=== PATIENT | female | born 1945 | race Caucasian/White ===

== ENCOUNTER → 2016-07-07 | Outpatient (CLI) | payer OTHER ==
[~2016-07-07] MED LIST: ALLER-TEC D 5-1 EACH PO; ALLERGY10 M1 PO; CENTRUM SILVER1 EAC5 PO; COCONUT OIL100 GM PO; DYAZIDE 37.5-21 EACH PO; FISH OIL 1,0001 EAC5 PO; IBUPROFEN 200200 M1 PO; IBUPROFEN 600600 M1 PO; MAGNESIUM OXID400 MG PO; MUCINEX1200 MG PO; MUCINEX600 MG PO; MULTIVITAMINS PO; PROBIOTIC1 EAC1 PO; SKELAXIN 800 M800 M1 PO; SLOW-MAG64 MG PO; TOPROL XL50 MG PO; TRIAMTERENE-HC1 EAC1 PO
== END ==
LOC: MRI 08:30
DX: S76.911A Strain of unspecified muscles, fascia and tendons at thigh level, right thigh, initial encounter (principal); M25.551 Pain in right hip

== ENCOUNTER → 2016-08-03 | Outpatient (CLI) | payer OTHER ==
[~2016-08-03] VITALS: Ht 160 cm; Wt 108.0 kg
--- NOTE | ~2016-08-03 | HPC ---
[facility] [address] [place] [address] PAIN MANAGEMENT CONSULTATION Name: ERIK HERNANDEZ Room #: REG [facility].#: [id number] Admission: 08/03/16 Attend Phys: Rizwan Decker DO Discharge: Date of : 43 Report #: [id number] THIS REPORT FOR: //name// CC: Rizwan Alford DATE OF SERVICE: 08/03/2016 REFERRING PHYSICIAN: Jonah Alford MD CHIEF COMPLAINT: Low back pain, left lower extremity pain and paresthesias. HISTORY OF PRESENT ILLNESS: As you know, the patient is a 71-year-old female who returns today in followup visit reporting pain score of 4-5/10, states pain begins in low back, radiates down the left leg all the way to the foot. She describes the pain as chronic in nature, sharp, numbness, tingling in sensation, exacerbated with walking, standing, improves with medications and sitting and repositioning. She reports good efficacy with previous set of epidural injections up to 100% improvement in overall pain with the last injection lasting until just about a month ago. She has had a slow and progressive return of symptoms, has returned requesting next in a series of epidural injections. She denies new injury, new trauma and has no changes in her medical history since our last visit. ALLERGIES: ASPIRIN. CURRENT MEDICATIONS: Metaxalone 800 mg 4 times a day, lactobacillus 1 tab per day, cetirizine 10 mg per day, guaifenesin 1200 mg once a day, coconut oil 1000 grams per day, magnesium oxide 400 mg per day, multivitamin 1 tab per day, ibuprofen 200 mg 3 times a day, omega-3 fish oil 1 tab per day, metoprolol 50 mg once a day. SOCIAL HISTORY: The patient denies tobacco, IV or illicit drug use. She admits to 4 alcoholic beverages per week. She is working, not receiving workmen's compensation. She is unaccompanied at today's visit. IMAGING: No new imaging is available. PHYSICAL EXAMINATION: VITAL SIGNS: Blood pressure 153/80, pulse 64, respiratory rate 18, unlabored. The patient is 95% on room air, height 5 feet 3 inches tall, weight 238.2 pounds, BMI calculated 42.2. GENERAL: Well developed, well nourished, well-hydrated exogenously obese 71-year-old female appearing stated age, placing current pain score at around 4-5/10. HEENT: Normocephalic, atraumatic. Pupils equal, round, [place] [address] PAIN MANAGEMENT CONSULTATION Name: ERIK HERNANDEZ Room #: REG [facility].#: [id number] Admission: 08/03/16 Attend Phys: Rizwan Decker DO Discharge: Date of : 43 Report #: [id number] Extraocular muscles are intact. Speech fluent. EXTREMITIES: Show no clubbing, no cyanosis, no edema. MUSCULOSKELETAL: Lower extremity strength equal and symmetrical 5/5, intact to light touch from L1 through S2 dermatomes. Seated straight leg raising negative. Supine straight leg raising positive on the left. FABERs test negative. Modified Gaenslen's positive for axial low back pain. ASSESSMENT: 1. Symptomatic lumbar radiculopathy. 2. Lumbosacral spondylosis with radiculopathy. 3. Chronic intractable pain. PLAN: 1. The patient has returned today in followup visit requesting to undergo next in the series of epidural injections under fluoroscopic guidance. She had done very well with previous set of epidural injections with near 100% improvement in overall pain lasting until just approximately 1 month ago with slow and progressive return of symptoms. She returns today requesting this epidural injection under fluoroscopic guidance. She has been advised risks and benefits of the procedure, states she understood and wished to proceed. 2. No medication changes were made at today's visit. The patient to continue current medical therapy as previously prescribed. 3. The patient to return to our clinic on an as needed basis for the next in the series of epidural injection and discuss other treatment options for lumbar radicular symptoms. PROCEDURE NOTE DESCRIPTION OF PROCEDURE: Lumbar epidural steroid injection under fluoroscopic guidance. This is the first procedure of the second series that the patient is undergoing. After obtaining written consent, the patient was taken back to the fluoroscopy suite, placed in a prone position with pillow under the abdomen to decrease lumbar lordosis. The skin overlying the lumbosacral area was then prepped and draped in aseptic fashion. The L5-S1 vertebral interspace was then identified by AP fluoroscopy. The skin and subcutaneous tissue overlying the target site of injection was anesthetized with 3 mL 1% lidocaine. A 20-gauge 4-1/2 inch Tuohy needle was then advanced under fluoroscopic guidance towards the epidural space using a paramedian approach. The epidural space was identified using loss of resistance to air technique. After negative aspiration for heme or cerebrospinal fluid, a total of 1 mL of Omnipaque was injected. A lumbar epidurogram was confirmed using both AP and lateral fluoroscopy. After negative aspiration for heme or cerebrospinal fluid, 5 mL of a solution [address] [address] PAIN MANAGEMENT CONSULTATION Name: ERIK HERNANDEZ Room #: REG [facility]#: [id number] Admission: 08/03/16 Attend Phys: Rizwan Decker DO Discharge: Date of : 43 Report #: [id number] containing 2 mL 40 mg per mL, 80 mg total triamcinolone, 3 mL lidocaine 1% was injected in increments. Contrast spread was noted in posterior epidural space. The needle was then retracted approximately half way and needle tract flushed with 1 mL of 1% lidocaine. Needle was then removed. There were no apparent sensory or motor deficits in the lower extremity following the procedure. A sterile bandage was placed over the injection site. The heart rate, pulse, oximetry and blood pressure were continuously monitored after the procedure. There were no apparent complications. The patient tolerated the procedure well and was carefully escorted to the recovery room in stable condition. There were no apparent complications. After meeting discharge criteria, the patient was then discharged home. By: [id number] Rizwan Decker DO /nt
[2016-08-03 09:33] VITALS: BP 153/80
== END ==
LOC: PAIN 06:44
DX: M47.27 Other spondylosis with radiculopathy, lumbosacral region (principal); M54.16 Radiculopathy, lumbar region; G89.29 Other chronic pain

== ENCOUNTER → 2016-11-09 | Outpatient (CLI) | payer OTHER ==
[~2016-11-09] VITALS: Ht 160 cm; Wt 105.7 kg
--- NOTE | ~2016-11-09 | HPC ---
[facility] [place] [address] PAIN MANAGEMENT CONSULTATION Name: ERIK HERNANDEZ Room #: REG [facility] [place]#: [id number] Admission: 11/09/16 Attend Phys: Rizwan Decker DO Discharge: Date of : 43 Report #: [id number] THIS REPORT FOR: //name// CC: Rizwan Alford DATE OF SERVICE: 11/09/2016 DATE OF SERVICE: 11/09/2016 REFERRING PHYSICIAN: Jonah Alford M.D. CHIEF COMPLAINT: Low back pain, left lower extremity pain and paresthesias. HISTORY OF PRESENT ILLNESS: As you know, the patient is a very pleasant 71-year-old female, who returns today in followup visit with recurrent low back pain, left lower extremity pain with paresthesias. The patient places current pain score 6/10. She indicates pain at a level that is exacerbated with walking and standing, improves with medications and seated position. She indicates today previous epidural injection provided 100% improvement in overall pain for nearly 3 months. Unfortunately, the patient has had a slow and progressive return of symptoms. She returns today in followup visit requesting next in a series of epidural injections in hopes of improving pain. She indicates no new injury, no new trauma or changes in her medical history since our last visit. ALLERGIES: ASPIRIN. CURRENT MEDICATIONS: Metoprolol, omega-3 fish oil, ibuprofen, multivitamin, magnesium, guaifenesin, cetirizine, lactobacillus and Skelaxin. SOCIAL HISTORY: The patient denies tobacco, IV or illicit drug use. Admits to approximately 4 alcoholic beverages per week. She is currently unemployed, but is looking for a new job. She is unaccompanied at today's visit. IMAGING: No new imaging available. PHYSICAL EXAMINATION: VITAL SIGNS: Blood pressure 154/72, pulse 90, respiratory rate 18, unlabored. The patient is 95% on room air, height 5 feet 3 inches tall, weight 233 pounds, BMI calculated 41.3. GENERAL: Well developed, well nourished, well-hydrated exogenously obese 71-year-old female appearing stated age, placing current pain score 6/10. HEENT: Normocephalic, atraumatic. Pupils equal, round, reactive to light. Extraocular muscles are intact. EXTREMITIES: Show no clubbing, no cyanosis, no edema. MUSCULOSKELETAL: Lower extremity strength equal and symmetrical 5/5, muscle [facility] [address] [place] [address] PAIN MANAGEMENT CONSULTATION Name: ERIK HERNANDEZ [id number] Admission: 11/09/16 Attend Phys: Rizwan Decker DO Discharge: Date of : 43 Report #: [id number] bulk and tone equal and symmetrical. Seated straight leg raising mildly positive, supine straight leg raising positive on the right. On the left, Humberto test is negative. Modified Gaenslen's positive for axial low back pain. Symptoms do appear to radiate on the L5 distribution. ASSESSMENT: 1. Symptomatic lumbar radiculopathy. 2. Lumbosacral spondylosis with radiculopathy. 3. Chronic intractable pain. PLAN: 1. The patient returns today in followup visit noting 100% improvement in overall pain lasting for nearly 3 months with previous epidural injection. The patient has requested a repeat epidural injection performed today to address her 6/10 pain involving low back and lower extremity. The patient has been advised of the risks and benefits of this procedure. These risks include but are not necessarily limited to bleeding, bruising, infection, worsening pain, no relief of pain, also risk of temporary or permanent muscle weakness, temporary or permanent nerve damage, possible paralysis and . The patient states understood and wished to proceed. 2. No medication changes were made at today's visit, the patient to continue current medical therapy as previously prescribed. 3. The patient to return to our clinic on an as needed basis for the next in the series of epidural injections. PROCEDURE NOTE DESCRIPTION OF PROCEDURE: L5-S1 left paramedian epidural steroid injection under fluoroscopic guidance. This is the second procedure of the second series that the patient is undergoing. After obtaining written consent, the patient was taken back to the fluoroscopy suite, placed in a prone position with pillow under the abdomen to decrease lumbar lordosis. The skin overlying the lumbosacral area was then prepped and draped in aseptic fashion. The L5-S1 vertebral interspace was then identified by AP fluoroscopy. The skin and subcutaneous tissue overlying the target site of injection was anesthetized with 3 mL 1% lidocaine. A 20-gauge 4-1/2 inches Tuohy needle was then advanced under fluoroscopic guidance towards the epidural space using a left paramedian approach. The epidural space was identified using loss of resistance to air technique. After negative aspiration for heme or cerebrospinal fluid, a total of 1 mL of Omnipaque was injected. A lumbar epidurogram was confirmed using both AP and lateral fluoroscopy. After negative aspiration for heme or cerebrospinal [address] [address] PAIN MANAGEMENT CONSULTATION Name: ERIK HERNANDEZ Room #: REG [facility]#: [id number] Admission: 11/09/16 Attend Phys: Rizwan Decker DO Discharge: Date of : 43 Report #: [id number] fluid, 5 mL of solution containing 2 mL 40 mg per mL, 80 mg total triamcinolone, 3 mL of lidocaine 1% was injected in increments. Contrast spread was noted posterior epidural space. The needle was then retracted approximately half way and needle tract flushed with 1 mL of 1% lidocaine. Needle was then removed. There were no apparent sensory or motor deficits in the lower extremity following the procedure. A sterile bandage was placed over the injection site. The heart rate, pulse, oximetry and blood pressure were continuously monitored after the procedure. There were no apparent complications. The patient tolerated the procedure well and was carefully escorted to the recovery room in stable condition. There were no apparent complications. After meeting discharge criteria, the patient was then discharged home. <ELECTRONICALLY SIGNED> By: Rizwan Decker DO 11/15/16 [id number] Rizwan Decker DO /nt
[2016-11-09 08:48] VITALS: BP 154/72
== END ==
LOC: PAIN 07:14
DX: M47.27 Other spondylosis with radiculopathy, lumbosacral region (principal); G89.29 Other chronic pain; R20.8 Other disturbances of skin sensation; Z88.8 Allergy status to other drugs, medicaments and biological substances; Z79.899 Other long term (current) drug therapy; M54.16 Radiculopathy, lumbar region

== ENCOUNTER → 2017-02-08 | Outpatient (CLI) | payer OTHER ==
[~2017-02-08] VITALS: Ht 160 cm; Wt 110.2 kg
--- NOTE | ~2017-02-08 | HPC ---
[facility] [address] [place] [address] PAIN MANAGEMENT CONSULTATION Name: ERIK HERNANDEZ [id number] Admission: 02/08/17 Attend Phys: Rizwan Decker DO Discharge: Date of : 43 Report #: [id number] THIS REPORT FOR: //name// CC: Rizwan Alford MD DATE OF SERVICE: 02/08/2017 CHIEF COMPLAINT: Low back pain, left lower extremity pain and paresthesias. HISTORY OF PRESENT ILLNESS: As you know, the patient is a very pleasant 71-year-old female returning in followup visit reporting pain score of around 5-6/10. States her pain is chronic in nature, involving low back, both buttocks, posterolateral thigh all the way down the legs. She states her pain as numbness, tingling, weakness and aching in sensation; exacerbated with walking, standing; improves with medications, sitting and epidural injections. The patient reports greater than 50% improvement in overall pain with previous epidural injection and unfortunately, the patient has had a slow and progressive return of symptoms without inciting injury or trauma. She has returned requesting next in a series of epidural injections in hopes of building on success of previous intervention. ALLERGIES: ASPIRIN. CURRENT MEDICATIONS: Skelaxin, Lactobacillus, Aller-Jose, guaifenesin, magnesium, multivitamin, ibuprofen, omega-3, metoprolol. SOCIAL HISTORY: The patient denies tobacco, IV or illicit drug use. Admits to 4 alcohol beverages per week. She is working, not receiving workmen's compensation, unaccompanied today. IMAGING: No imaging available. PHYSICAL EXAMINATION: VITAL SIGNS: Blood pressure 181/83, pulse is 73, respiratory rate 16, unlabored. The patient at 92% on room air. Height 5 feet 3 inches tall, weight 243 pounds, BMI calculated 43.1. GENERAL: Well-developed, well-nourished, well-hydrated, class 3 morbidly obese 71-year-old female appearing her stated age. Pain is rated at around 6/10. HEENT: Normocephalic, atraumatic. Pupils equal, round, reactive to light. Extraocular muscles are intact. EXTREMITIES: Show no clubbing, no cyanosis, no edema. MUSCULOSKELETAL: Seated straight leg raising negative. Supine straight leg raising positive on the left. NEHEMIAS test negative. Modified Gaenslen's positive for axial low back pain. Gait appears normal. Stance is slightly [facility] [address] [place] [address] PAIN MANAGEMENT CONSULTATION Name: ERIK HERNANDEZ Room #: REG [facility]#: [id number] Admission: 02/08/17 Attend Phys: Rizwan Decker DO Discharge: Date of : 43 Report #: [id number] forward flexed lumbar spine. Muscle bulk, tone equal and symmetrical in lower extremities. ASSESSMENT: 1. Symptomatic lumbar radiculopathy. 2. Lumbosacral spondylosis with radiculopathy. 3. Chronic intractable pain. PLAN: 1. The patient returns today in followup visit requesting to undergo the next in a series of epidural injections. We have taken the liberty of contacting the patient's third alliance party payer and we have been able to establish preauthorization for the patient to undergo the procedure today. The patient has been advised of the risks and benefits of this procedure. These risks include but are not necessarily limited to bleeding, bruising, infection, worsening pain, no relief of pain, also risk of temporary or permanent muscle weakness, temporary or permanent nerve damage, possible paralysis and . The patient states understood and wished to proceed. 2. No medication changes were made at today's visit. The patient to continue current medical therapy as previously prescribed. 3. The patient to return to our clinic on an as-needed basis for the next in a series of epidural injection and to discuss other treatment options. DESCRIPTION OF PROCEDURE: L5-S1 paramedian epidural steroid injection under fluoroscopic guidance. This is the second procedure of the second series that the patient is undergoing. After obtaining written consent, the patient was taken back to the fluoroscopy suite, placed in a prone position with pillow under the abdomen to decrease lumbar lordosis. The skin overlying the lumbosacral area was then prepped and draped in aseptic fashion. The lumbar or lumber vertebral interspace was then identified by AP fluoroscopy. The skin and subcutaneous tissue overlying the target site of injection was anesthetized with 3 mL 1% lidocaine. A 20-gauge 4-1/2 inch Tuohy needle was then advanced under fluoroscopic guidance towards the epidural space using a paramedian approach. The epidural space was identified using loss of resistance to air technique. After negative aspiration for heme or cerebrospinal fluid, a total of 1 mL of Omnipaque was injected. A lumbar epidurogram was confirmed using both AP and lateral fluoroscopy. After negative aspiration for heme or cerebrospinal fluid, 5 mL of a solution containing 2 mL 40 mg per mL, 80 mg total triamcinolone, 3 mL lidocaine 1% was injected in increments. Contrast spread was noted posterior epidural space. The needle was then retracted approximately half way and needle tract flushed with 1 mL of 1% lidocaine. Needle was then removed. There were no apparent [address] [address] PAIN MANAGEMENT CONSULTATION Name: ERIK HERNANDEZ Room #: REG [facility]#: [id number] Admission: 02/08/17 Attend Phys: Rizwan Decker DO Discharge: Date of : 43 Report #: [id number] sensory or motor deficits in the lower extremity following the procedure. A sterile bandage was placed over the injection site. The heart rate, pulse, oximetry and blood pressure were continuously monitored after the procedure. There were no apparent complications. The patient tolerated the procedure well and was carefully escorted to the recovery room in stable condition. There were no apparent complications. After meeting discharge criteria, the patient was then discharged home. By: [id number] Rizwan Decker DO /nt
[2017-02-08 08:12] VITALS: BP 181/83
== END | disposition home or self-care (01) ==
LOC: PAIN 07:07
DX: M54.16 Radiculopathy, lumbar region (principal); M47.27 Other spondylosis with radiculopathy, lumbosacral region; G89.29 Other chronic pain; Z68.41 Body mass index [BMI] 40.0-44.9, adult; Z88.6 Allergy status to analgesic agent; Z79.899 Other long term (current) drug therapy; E66.01 Morbid (severe) obesity due to excess calories

== ENCOUNTER → 2017-03-15 | Outpatient (CLI) | payer OTHER | LOC: RAD 01:29 | DX: Z12.31 Encounter for screening mammogram for malignant neoplasm of breast (principal) ==

== ENCOUNTER → 2017-06-01 | Outpatient (CLI) | payer OTHER ==
[~2017-06-01] VITALS: Ht 160 cm; Wt 111.5 kg
--- NOTE | ~2017-06-01 | HPC ---
[facility] [place] [address] PAIN MANAGEMENT CONSULTATION Name: ERIK HERNANDEZ [facility] #: [facility] [id number] Admission: 06/01/17 Attend Phys: Rizwan Decker DO Discharge: Date of : 43 Report #: [id number] THIS REPORT FOR: //name// CC: Rizwan Alford MD DATE OF SERVICE: 06/01/2017 REFERRING PHYSICIAN: Jonah Alford MD CHIEF COMPLAINT: Low back pain, bilateral lower extremity pain and paresthesias. HISTORY OF PRESENT ILLNESS: As you know, the patient is a very pleasant 72-year-old female returning in followup visit with recurrent low back pain, bilateral lower extremity pain. She is now placing pain score at 8/10. She states pain is chronic in nature involving low back and bilateral legs, she describes the pain as numbness, tingling, weakness, aching, exacerbated with walking and standing, improves with medications and sitting position as well as epidural injections, most recent epidural injection provided 75% improvement in overall pain until just recently where she had a slow and progressive return of symptoms, no inciting injury or trauma. She returns today in followup visit requesting to undergo next in the series of epidural injections. ALLERGIES: Aspirin. CURRENT MEDICATIONS: Skelaxin, lactobacillus, cetirizine, guaifenesin, magnesium oxide, multivitamin, ibuprofen, omega-3 fish oil, and metoprolol. SOCIAL HISTORY: The patient denies tobacco, IV or illicit drug use, admits to approximately 4 alcoholic beverages per week. She is working, not receiving workmen's compensation, unaccompanied today. IMAGING: No new imaging available. PQRS: The patient denies osteoarthritis or rheumatoid arthritis. She has a pain intensity of 8/10. She is not a fall risk, has not had a fall in the past 3 months. She does use a cane for ambulation. She is not on blood thinner. She is treated for hypertension. She is not on opioids for any length of time. She has a low risk assessment for opioid abuse. Her functional assessment score 49/70. PHYSICAL EXAMINATION: VITAL SIGNS: Blood pressure 136/54, pulse 73, respiratory rate [address] [facility] [place] [address] [place] [address] PAIN MANAGEMENT CONSULTATION Name: ERIK HERNANDEZ JUSTYNA Room #: [facility].#: [id number] Admission: 06/01/17 Attend Phys: Rizwan Decker DO Discharge: Date of : 43 Report #: [id number] unlabored, the patient is 95% on room air, height 5 feet 3 inches tall, weight 245.8 pounds, and BMI calculated 43.6. GENERAL: Well-developed, well-nourished, well-hydrated, morbidly obese 72-year-old female, appearing her stated age, placing pain score today 8/10. HEENT: Normocephalic, atraumatic. Pupils are equal, round, and reactive to light. Extraocular muscles are intact. Speech is fluent. EXTREMITIES: Show no clubbing, no cyanosis, and no edema. MUSCULOSKELETAL: The patient has normal lower extremity strength 5/5, intact to light touch from L1 through S2 dermatomes. Seated straight leg raising negative. Supine straight leg raising positive. Humberto's test negative. ASSESSMENT: 1. Symptomatic lumbar radiculopathy. 2. Lumbosacral spondylosis with radiculopathy. 3. Chronic intractable pain. PLAN: 1. The patient returns today in followup visit having noted 75% improvement in overall pain with epidural injection provided at last visit. The patient is extremely pleased with response to this epidural injection, returning today in followup visit requesting to undergo the next in the series. The patient was advised the risks and benefits of the procedure and wished to proceed. 2. No medication changes were made at today's visit, the patient to continue current medical therapy as previously prescribed. 3. The patient to return to our clinic on an as needed basis for possible next in the series of epidural injections. PROCEDURE NOTE DESCRIPTION OF PROCEDURE: L5-S1 interlaminar epidural steroid injection under fluoroscopic guidance. This is the first procedure of the third series that the patient is undergoing. After obtaining written consent, the patient was taken back to the fluoroscopy suite, placed in a prone position with pillow under the abdomen to decrease lumbar lordosis. The skin overlying the lumbosacral area was then prepped and draped in aseptic fashion. The L5-S1 vertebral interspace was then identified by AP fluoroscopy. The skin and subcutaneous tissue overlying the target site of injection was anesthetized with 3 mL 1% lidocaine. A 20-gauge 4-1/2-inch Tuohy needle was then advanced under fluoroscopic guidance towards the epidural space using a paramedian approach. The epidural space was identified using loss of resistance to air technique. After negative aspiration for heme or cerebrospinal fluid, a total of 1 mL of Omnipaque was injected. A lumbar epidurogram was confirmed using both AP and lateral fluoroscopy. After [address] [address] PAIN MANAGEMENT CONSULTATION Name: ERIK HERNANDEZ Room #: REG LUBNA Anthony#: [id number] Admission: 06/01/17 Attend Phys: Rizwan Decker DO Discharge: Date of : 43 Report #: [id number] negative aspiration for heme or cerebrospinal fluid, 5 mL of a solution containing 2 mL 40 mg per mL, 80 mg total triamcinolone, 3 mL lidocaine 1% was injected in increments. Contrast spread was noted posterior epidural space. The needle was then retracted approximately half way and needle tract flushed with 1 mL of 1% lidocaine. Needle was then removed. There were no apparent sensory or motor deficits in the lower extremity following the procedure. A sterile bandage was placed over the injection site. The heart rate, pulse, oximetry and blood pressure were continuously monitored after the procedure. There were no apparent complications. The patient tolerated the procedure well and was carefully escorted to the recovery room in stable condition. There were no apparent complications. After meeting discharge criteria, the patient was then discharged home. <ELECTRONICALLY SIGNED> By: Rizwan Decker DO 06/14/17 0858 [id number] Rizwan Decker DO /nt
[2017-06-01 08:45] VITALS: BP 136/54
== END | disposition home or self-care (01) ==
LOC: PAIN 07:00
DX: M47.27 Other spondylosis with radiculopathy, lumbosacral region (principal); G89.29 Other chronic pain; I10 Essential (primary) hypertension; Z88.8 Allergy status to other drugs, medicaments and biological substances; Z79.899 Other long term (current) drug therapy; Z98.890 Other specified postprocedural states

== ENCOUNTER → 2017-10-11 | Outpatient (CLI) | payer OTHER ==
[~2017-10-11] VITALS: Ht 160 cm; Wt 110.2 kg
--- NOTE | ~2017-10-11 | HPC ---
[facility] [place] [address] PAIN MANAGEMENT CONSULTATION Name: ERIK HERNANDEZ Room #: REG [facility]..#: [id number] Admission: 10/11/17 Attend Phys: Rizwan Decker DO Discharge: Date of : 43 Report #: [id number] THIS REPORT FOR: //name// CC: Rizwan Alford MD DATE OF SERVICE: 10/11/2017 CHIEF COMPLAINT: Low back pain, left lower extremity pain with paresthesias. HISTORY OF PRESENT ILLNESS: As you know, the patient is a pleasant 71-year-old female who returns today in followup visit reporting pain score around 7-9/10. States her pain is numbness, tingling, weakness, aching and swelling in sensation, exacerbated with walking, standing, sleeping, and improves with medications, sitting, repositioning and previous epidural injection. The patient reports improvement of symptoms of greater than 90%, lasting for greater than 3 months with the previous epidural injection. She returns today in followup visit requesting to undergo next in the series of epidural injections to build on success of previous intervention. ALLERGIES: ASPIRIN. CURRENT MEDICATIONS: Metoprolol, omega 3 fish oil, ibuprofen, multivitamin, magnesium, guaifenesin, cetirizine, metaxalone, lactobacillus. SOCIAL HISTORY: The patient denies tobacco, IV or illicit drug use. Admits to 4 alcohol beverages per week. She is working, not receiving workmen's compensation, unaccompanied today. IMAGING: No new imaging available. PHYSICAL EXAMINATION: VITAL SIGNS: Blood pressure 194/90, pulse is 90, respiratory rate 16, unlabored. The patient is 94% on room air. Height 5 feet 3 inch tall, weight 243 pounds, BMI calculated 43.1. GENERAL: Well-developed, well-nourished, well-hydrated, class 3, morbidly obese 72-year-old female appearing stated age, placing current pain score 7-9/10. HEENT: Normocephalic, atraumatic. Pupils equal, round, reactive to light. Extraocular muscles are intact. EXTREMITIES: Show no clubbing, no cyanosis, no edema. MUSCULOSKELETAL: Seated straight leg raising negative. Supine straight leg raising positive on the left. Humberto's test negative. Modified Gaenslen's is positive for axial low back pain. Gait appears normal. ASSESSMENT: [address] [address] PAIN MANAGEMENT CONSULTATION Name: ERIK HERNANDEZ [facility] [id number] Admission: 10/11/17 Attend Phys: Rizwan Decker DO Discharge: Date of : 43 Report #: [id number] 1. Symptomatic lumbar radiculopathy. 2. Lumbosacral spondylosis with radiculopathy. 3. Morbid obesity. 4. Chronic intractable pain. PLAN: 1. The patient returns today in followup visit requesting to undergo next in the series of epidural injections. She reports 90% improvement in overall pain with previous epidural injection lasting for nearly 3 months. She returns today requesting next in the series. I have advised the patient of the risks and benefits, states understood and wished to proceed. 2. No medication changes made at today's visit. The patient to continue current medical therapy as previously prescribed. 3. We will see the patient back in followup visit on an as needed basis for possible next in a series of epidural injections. By: 1445 [id number] Rizwan Decker DO /nt
--- NOTE | ~2017-10-11 | P ---
[facility] [place] [address] PROCEDURE REPORT Name: ERIK HERNANDEZ [facility] [id number] Admission: 10/11/17 Attend Phys: Rizwan Decker DO Discharge: Date of : 43 Report #: [id number] THIS REPORT FOR: //name// CC: Rizwan Alford MD DATE OF SERVICE: 10/11/2017 DESCRIPTION OF PROCEDURE: L5-S1 paramedian epidural steroid injection under fluoroscopic guidance. This is the third procedure of the second series that the patient is undergoing. After obtaining written consent, the patient was taken back to the fluoroscopy suite, placed in a prone position with pillow under the abdomen to decrease lumbar lordosis. The skin overlying the lumbosacral area was then prepped and draped in aseptic fashion. The L5-S1 vertebral interspace was then identified by AP fluoroscopy. The skin and subcutaneous tissue overlying the target site of injection was anesthetized with 3 mL 1% lidocaine. A 20-gauge 3-1/2-inch Tuohy needle was then advanced under fluoroscopic guidance towards the epidural space using a right paramedian approach. The epidural space was identified using loss of resistance to air technique. After negative aspiration for heme or cerebrospinal fluid, a total of 1 mL of Omnipaque was injected. A lumbar epidurogram was confirmed using both AP and lateral fluoroscopy. After negative aspiration for heme or cerebrospinal fluid, 5 mL of a solution containing 2 mL 40 mg per mL 80 mg total triamcinolone, 3 mL lidocaine 1% was injected in increments. Contrast spread was noted posterior epidural space. The needle was then retracted approximately half way and needle tract flushed with 1 mL of 1% lidocaine. Needle was then removed. There were no apparent sensory or motor deficits in the lower extremity following the procedure. A sterile bandage was placed over the injection site. The heart rate, pulse, oximetry and blood pressure were continuously monitored after the procedure. There were no apparent complications. The patient tolerated the procedure well and was carefully escorted to the recovery room in stable condition. There were no apparent complications. After meeting discharge criteria, the patient was then discharged home. By: 1445 [id number] Rizwan Decker DO /nt
[2017-10-11 13:19] VITALS: BP 194/90
== END | disposition home or self-care (01) ==
LOC: PAIN 12:40
DX: M47.27 Other spondylosis with radiculopathy, lumbosacral region (principal); E66.01 Morbid (severe) obesity due to excess calories; G89.29 Other chronic pain; Z68.41 Body mass index [BMI] 40.0-44.9, adult; Z79.899 Other long term (current) drug therapy; Z88.8 Allergy status to other drugs, medicaments and biological substances; Z98.890 Other specified postprocedural states

== ENCOUNTER → 2018-03-16 | Outpatient (CLI) | payer OTHER | LOC: RAD 03:05 | DX: Z12.31 Encounter for screening mammogram for malignant neoplasm of breast (principal) ==

== ENCOUNTER → 2019-03-19 | Outpatient (CLI) | payer OTHER | LOC: BC 03-15 21:32 | DX: Z12.31 Encounter for screening mammogram for malignant neoplasm of breast (principal) ==

== ENCOUNTER → 2019-04-05 | Outpatient (CLI) | payer OTHER | LOC: RAD 08:03 | DX: N63.11 Unspecified lump in the right breast, upper outer quadrant (principal) ==

== ENCOUNTER → 2019-04-06 | Outpatient (CLI) | payer OTHER ==
--- NOTE | 2019-04-12 11:08 | PATH ---
[facility] [address] [place] [address] PATHOLOGY RPT PROCEDURE Name: MARYERIK JANSEN Room #: REG LUBNA Anthony.#: [id number] Admission: 04/06/19 Date of : 43 Discharge: Report #: [id number] Path Case #: [id number] [facility] Accession Number: [id number] . 01 Material submitted: . breast - RIGHT BREAST MASS, 10:00, 8CMFN. Modifiers: right, 10:00 . 01 Clinical history: . Right breast mass . 02 Diagnosis: Breast, right breast mass 10:00 8 cm from nipple, needle core biopsy: - INVASIVE LOBULAR CARCINOMA, ASHLEY GRADE 1 AND MEASURING 1.4 CM IN GREATEST DIMENSION IN CONTIGUOUS LENGTH IN A SINGLE CORE. 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 LBQ 04/10/2019 1047 Local . 02 Comment: Specimen type: Needle core biopsy Tumor site: Right breast 10:00 8 cm from nipple Tumor quantitation: 1.4 cm in greatest dimension in contiguous length in a single core Histologic type: Invasive lobular carcinoma Histologic grade: Ashley grade 1 Tubules, nuclei and mitoses: 3, 1 and 1 respectively LVSI: Not identified Microcalcifications: Present in proliferative fibrocystic changes, as well as amidst invasive carcinoma Markers: ER, WY, HER-2/dianna and Ki-67 Block: A2 . A properly controlled E-cadherin immunohistochemical stain is performed on block A1 and it shows no reactivity within the invasive carcinoma, consistent with the diagnosis rendered. . Co-review: Dr. Gentry Bernstein . Findings of this case are telephoned to Dr. Caban on behalf of Dr. Renzo Hoover at approximately 1:05 p.m. on 04/09/19. (IUV/db; 04/09/2019) . 02 Addendum: . Special studies report received from [facility], [address] [place] [address], [address], [place], [address], on case [id number], labeled with their number [id number], dated 04/11/2019. [place] [address] PATHOLOGY RPT PROCEDURE Name: MARYPONCHOERIKSAIRA JANSEN Room #: REG LUBNA Drake#: [id number] Admission: 04/06/19 Date of : 43 Discharge: Report #: [id number] Path Case #: [id number] . Breast/Prognostic Marker Analysis . Specimen Site: Breast - Breast Cancer Specimen ID #: [id number] . ER (Estrogen Receptor) Present/Positive Percent: 96.20% Analysis: Image Comments: Staining Intensity: Moderate. . WY (Progesterone Receptor) Present/Positive Percent: 74.61% Analysis: Image Comments: Staining Intensity: Weak to Moderate. . HER2 Not Over-Expressed Score: 0 Analysis: Image . Ki-67 Low Proliferation Percent: 6.78% Analysis: Image . Time to Fixation (Cold Ischemic Time): Not Provided Duration of Fixation: 13 hrs. 20 min Type of Fixative: 10% Neutral Buffered Formalin . at [facility]. Bridger Joseph MD Pathologist . Methodology The HER2 Receptor protein expression is analyzed using the Rosepine HER2 rabbit monoclonal antibody (clone [id number]). This assay is used for diagnostic determination of the HER2 protein over-expression in paraffin embedded, formalin fixed breast cancer tissue on the Rosepine Benchmark. The specimen is processed using a secondary antibody-HRP conjugate detection system. The membrane staining of the tumor is determined either by manual score or image analysis. This antibody is intended for in vitro diagnostic use. The score is reported as 0, 1+, 2+, or 3+. This test is used for clinical purposes. . [address] [address] PATHOLOGY RPT PROCEDURE Name: ERIK STANFORD Room #: REG CLJessica Drake#: [id number] Admission: 04/06/19 Date of : 43 Discharge: Report #: [id number] Path Case #: [id number] A rabbit monoclonal antibody (clone SP1) that recognized the Estrogen Receptor is used to perform immunohistochemistry on routinely fixed (formalin) paraffin embedded tissue on the Rosepine Benchmark. The specimen is processed using a secondary antibody-HRP conjugate detection system. The percentage of stained tumor nuclei is determined either manually or by image analysis. This test is intended for in vitro diagnostic use. This test is used for clinical purposes. . A rabbit monoclonal antibody (clone 1E2) that recognized the Progesterone Receptor is used to perform immunohistochemistry on routinely fixed (formalin) paraffin embedded tissue on the Rosepine Benchmark. The specimen is processed using a secondary antibody-HRP conjugate detection system. The percentage of stained tumor nuclei is determined either manually or by image analysis. This test is intended for in vitro diagnostic use. This test is used for clinical purposes. . A rabbit monoclonal antibody (clone 30-9) that recognized Ki67 is used to perform immunohistochemistry on routinely fixed (formalin) paraffin embedded tissue on the Rosepine Benchmark. The specimen is processed using a secondary antibody-HRP conjugate detection system. The percentage of stained tumor nuclei is determined either manually or by image analysis. This test is intended for in vitro diagnostic use. This test is used for clinical purposes. . Intended Use: This antibody is intended for in vitro diagnostic (IVD) use. HER2 (4B5) is a rabbit monoclonal antibody intended for the semi-quantitative detection of HER2 antigen in sections of formalin-fixed, paraffin embedded normal and neoplastic tissue. . This antibody is intended for in vitro diagnostic (IVD) use. Estrogen Receptor (ER) (SP1) is a rabbit monoclonal antibody (IgG) that is intended for the qualitative detection of estrogen receptor (ER) antigen in sections of formalin-fixed, paraffin-embedded tissue. ER is a rabbit monoclonal antibody that recognizes human estrogen receptor alpha. . This antibody is intended for in vitro diagnostic (IVD) use. Progesterone Receptor (WY) (1E2) is a rabbit monoclonal antibody (IgG) that is intended for the qualitative detection of progesterone receptor (WY) antigen in sections of formalin fixed, paraffin embedded tissue. WY is a rabbit monoclonal antibody that recognizes the A and B forms of the human progesterone receptor. . This antibody is intended for in vitro diagnostic (IVD) use. Ki-67 (30-9) is a rabbit monoclonal antibody (IgG) directed against C-terminal portion of Ki-67 antigen. Staining for Ki-67 can be used to aid in assessing the proliferative activity of normal and neoplastic tissue. Ki-67 is a nuclear protein expressed in proliferating cells. During the cell cycle, the Ki-67 [address] [address] PATHOLOGY RPT PROCEDURE Name: ERIK STANFORD [place] [id number] Admission: 04/06/19 Date of : 43 Discharge: Report #: [id number] Path Case #: [id number] antigen is present in the G1, S, G2 and M phase but is absent in the G0 (quiescent phase). . . Disclaimer: This Test was performed by [facility] at [address], [address]. . [facility] is a business unit of [employer] a wholly-owned subsidiary of [facility]. . This assay has not been validated on decalcified tissues. Results should be interpreted with caution if this specimen was decalcified given the likelihood of false negativity on decalcified specimens. . Any image(s) that accompany this report is/are a disability representative image(s) only and should not be used to render a diagnosis. . This interpretation is contingent on the specimen and the clinical information received. . For any special tests/stains performed, known positive cells or tissues are tested with each marker and examined to ensure positivity. Positive and negative internal controls, if present, react appropriately. . This analysis is an adjunct to the evaluation of the referring physician and does not represent a final diagnosis. . The immunohistochemistry tests performed at [facility]. were validated on tissue fixed in 10% neutral buffered formalin. The performance characteristics of the tests performed on tissue processed in other fixatives is not known. . HER2 testing at [facility] is performed in compliance with the 2018 updated ASCO/CAP Clinical Practice Guideline Focused Update. If the result is EQUIVOCAL (2+), it must be confirmed by an alternative assay such as FISH or Dual BALDOMERO. REF: Bhargavi ALEXANDER, VANDANA Saba et al: Human Epidermal Growth Factor Receptor 2 Testing in Breast Cancer: ASCO/CAP Clinical Practice Guideline Focused Update. J Clin Oncol 36:5955-9367, 2018. . HER2 and ER/WY ASCO/CAP guidelines require fixation in neutral buffered formalin for a minimum of 6 and a maximum of 72 hours. Fixation times less than 6 hours may not adequately preserve cell proteins. Fixation times longer than 72 hours may cause excess cross-linking of proteins reducing the antigen available for staining. Either scenario can cause reduced staining; hence false negative results are possible and should be [address] [address] PATHOLOGY RPT PROCEDURE Name: ERIK STANFORD Room #: REG LUBNA Drake#: [id number] Admission: 04/06/19 Date of : 43 Discharge: Report #: [id number] Path Case #: [id number] considered for these situations if the HER2 IHC score is less than 3+ or ER or WY is negative (no staining or <1% positive). It is recommended that specimens fixed longer than 72 hours with HER2 IHC scores less than 3+ be confirmed by HER2 FISH or Dual BALDOMERO. The time from biopsy/excision to fixation in formalin (cold ischemic time) must be less than 1 hour. Time to fixation (cold ischemic time) greater than 1 hour should be interpreted with caution. HER2 testing, mainly HER2 by FISH, is particularly vulnerable since excessive cold ischemic time results in preferential loss of HER2 probe signals that may lead to false negative results. . SCORE STAINING PATTERN IN TUMOR CELLS INTERPRETATION RESULTS 0 No staining observed or incomplete, faint membrane staining in less than or equal to 10% of tumor cells. Negative 1+ Incomplete, faint membrane staining in greater than 10% of tumor cells. Negative 2+ Weak to moderate complete membrane staining observed in greater than 10% of tumor cells. Equivocal* *Must be confirmed by alternative assay (IHC/FISH/Dual BALDOMERO) 3+ Intense, complete membrane staining in greater than 10% of tumor cells. Positive . A complete copy of the report is on file. . Professional and Technical services performed by [facility] at [address] [place] [address]. . (IUV:amj 04/11/2019) . MBR/04/11/2019 Addendum Electronically Signed by Lenka Aviles MD, Pathologist . 02 Electronically signed: . Lenka Aviles MD, Pathologist NPI- [id number] . 01 Gross description: . Received in formalin labeled "Erik Stanford, right breast 10:00, 8 cm FN," are multiple needle cores of yellow-butcher fibrofatty tissue measuring 5.2 x 4.7 x 0.6 cm in aggregate dimensions. The tissue is submitted in its entirety in cassette A1-A4. The cold ischemic time is unknown. The total formalin fixation time is 13 hours and [address] minutes[address] [address] PATHOLOGY RPT PROCEDURE Name: ERIK STANFORD Room #: REG [facility] M.R.#: [id number] Admission: 04/06/19 Date of : 43 Discharge: Report #: [id number] Path Case #: [id number] (TSD; 04/06/2019) TOB/TOB 04/06/2019 1639 Local . 02 Pathologist provided ICD-10: C50.911, D05.11, N60.11 . 02 CPT . 688549, [id number] Specimen Comment: A courtesy copy of this report has been sent to [phone], [phone] Specimen Comment: [phone] Specimen Comment: Report sent to / DR DEE Performed at: [address] [facility] [address], [place], [place] [id number] MD Óscar Shaw MD Phone: [phone] Performed at: [address] [facility] [address] [id number] MD Lenka Aviles MD Phone: [phone]
== END | disposition home or self-care (01) ==
LOC: ULTRA 09:39
DX: C50.911 Malignant neoplasm of unspecified site of right female breast (principal); N60.11 Diffuse cystic mastopathy of right breast; R92.1 Mammographic calcification found on diagnostic imaging of breast; Z98.890 Other specified postprocedural states; Z79.899 Other long term (current) drug therapy; Z88.8 Allergy status to other drugs, medicaments and biological substances

== ENCOUNTER → 2019-10-31 | Outpatient (CLI) | payer OTHER | LOC: BC 15:10 | PROVIDERS: ATTEND Family Medicine | DX: C50.811 Malignant neoplasm of overlapping sites of right female breast (principal) ==

== ENCOUNTER → 2020-04-10 | Outpatient (CLI) | payer OTHER | LOC: BC 08:12 | PROVIDERS: ATTEND Family Medicine | DX: C50.811 Malignant neoplasm of overlapping sites of right female breast (principal); R92.1 Mammographic calcification found on diagnostic imaging of breast; R92.2 Inconclusive mammogram; Z98.890 Other specified postprocedural states ==

== ENCOUNTER → 2020-04-15 | Outpatient (CLI) | payer OTHER ==
--- NOTE | 2020-04-17 18:06 | PATH ---
[facility] [address] [place] [address] PATHOLOGY RPT PROCEDURE Name: ERIK STANFORD JUSTYNA Room #: REG LUBNA Anthony.#: [id number] Admission: 04/15/20 Date of : 43 Discharge: Report #: [id number] Path Case #: [id number] [facility] Accession Number: [id number] . 01 Material submitted: . breast - LEFT BREAST POSTERIOR CENTRAL. Modifiers: left, posterior, central . 01 Clinical history: . LEFT BREAST MICROCALCIFICATIONS . 02 Diagnosis: Breast, left breast posterior central, stereotactic needle core biopsy for calcifications: - Calcified sclerotic fibroadenoma (associated with coarse calcifications). - Background breast tissue showing nonproliferative fibrocystic changes. - Negative for malignancy. (IUV:yahir; 04/17/2020) QMS 04/17/2020 1515 Local . 02 Electronically signed: . Lenka Aviles MD, Pathologist NPI- [id number] . 01 Gross description: . The specimen is received in formalin, labeled "Erik Stanford, left breast" and consists of multiple needle cores of yellow orange tissue measuring 3.3 x 1.8 x 0.6 to in aggregate which are transferred to cassette A1. Also received are multiple additional needle cores of yellow fibroadipose tissue measuring 4.3 x 3.0 x 0.5 cm in aggregate which are entirely submitted in A2-A3. The specimen was collected at 2:15 PM on 04/15/2020 and placed in formalin at 2:20 PM. The cold ischemic time is 5 minutes and the total formalin fixation time is greater than 6 hours but less than 72 hours. (SDY; 04/16/2020) SYU/SYU 04/17/2020 1514 Local . 02 Pathologist provided ICD-10: D24.2, N60.12 . 02 CPT . 937924 Specimen Comment: A courtesy copy of this report has been sent to [phone] Specimen Comment: [phone], Specimen Comment: Report sent to ,DR DEE / DR SKAGGS Performed at: 01 [place] [address] PATHOLOGY RPT PROCEDURE Name: ERIK STANFORD MAPLE Room #: REG CL Vidal#: [id number] Admission: 04/15/20 Date of : 43 Discharge: Report #: [id number] Path Case #: [id number] [facility] [place] [address] [place] [address] [address], [place], [place] [id number] MD Dorian Truong MD Phone: [phone] Performed at: [address] [id number] MD Lenka Aviles MD Phone: [phone]
== END | disposition home or self-care (01) ==
LOC: RAD 12:50
PROVIDERS: ATTEND Specialist
DX: R92.1 Mammographic calcification found on diagnostic imaging of breast (principal); D24.2 Benign neoplasm of left breast; N60.12 Diffuse cystic mastopathy of left breast; Z98.890 Other specified postprocedural states; Z79.899 Other long term (current) drug therapy

== ENCOUNTER → 2020-08-04 | Outpatient (CLI) | payer OTHER | LOC: CAT 12:57 | PROVIDERS: ATTEND Family Medicine | DX: Z13.6 Encounter for screening for cardiovascular disorders (principal); I25.10 Atherosclerotic heart disease of native coronary artery without angina pectoris; E78.00 Pure hypercholesterolemia, unspecified ==

== ENCOUNTER → 2020-10-14 | Outpatient (CLI) | payer OTHER | LOC: SJCVC 13:19 | PROVIDERS: ATTEND Internal Medicine | DX: R94.31 Abnormal electrocardiogram [ECG] [EKG] (principal); I45.10 Unspecified right bundle-branch block; R93.1 Abnormal findings on diagnostic imaging of heart and coronary circulation; I10 Essential (primary) hypertension; E78.00 Pure hypercholesterolemia, unspecified; C50.911 Malignant neoplasm of unspecified site of right female breast; K21.9 Gastro-esophageal reflux disease without esophagitis; M19.90 Unspecified osteoarthritis, unspecified site; Z79.899 Other long term (current) drug therapy; Z87.891 Personal history of nicotine dependence; Z72.89 Other problems related to lifestyle; Z88.1 Allergy status to other antibiotic agents; Z88.8 Allergy status to other drugs, medicaments and biological substances ==

== ENCOUNTER → 2020-11-10 | Outpatient (CLI) | payer OTHER | LOC: RAD 10:02 | PROVIDERS: ATTEND Specialist | DX: C50.911 Malignant neoplasm of unspecified site of right female breast (principal); Z17.0 Estrogen receptor positive status [ER+]; R92.8 Other abnormal and inconclusive findings on diagnostic imaging of breast ==